=== PATIENT | male | born 1950 | race Hispanic/Latino ===

== ENCOUNTER 2016-04-18 16:10 | Emergency (ER) | payer SELFPAY ==
[2016-04-18] MEDS ORDERED: CARDENE DRIP 40 MG/200 ML 40 MG/200 ML BAG ONE (16:20)
[2016-04-18 16:22] LABS: Basophils % (Auto) 0.4 % (0.0-1.8); Eosinophils % (Auto) 2.4 % (0.0-4.3); Mean Corpuscular HGB Conc 31 % (32-34); Mean Corpuscular Hemoglobin 29 pg (28-32); Mean Corpuscular Volume 93 fl (84-94); Platelet Count 251 K/mm3 (140-440); Red Blood Count 5.07 M/mm3 (3.65-5.03); Red Cell Distribution Width 14.8 % (13.2-15.2); White Blood Count 9.4 K/mm3 (4.5-11.0)
[2016-04-18 16:23] LABS: Hemoglobin 14.5 gm/dl (11.8-15.2)
[2016-04-18] MEDS ORDERED: VASELINE LIP THERAPY TP PRN (16:26)
[2016-04-18] MEDS ORDERED: ARTIFICIAL TEARS OPHTH OINT OU PRN (16:26)
--- NOTE | 2016-04-18 16:30 | Cat Scan Report ---
FINAL REPORT PROCEDURE: CT HEAD/BRAIN WO CON TECHNIQUE: Computerized tomography of the head was performed without contrast material. HISTORY: neuro deficits \T\lt; 6hrs or sx present upon awakening COMPARISON: No prior studies are available for comparison. FINDINGS: There is acute parenchymal hemorrhage in the right basal ganglia, which measures up to 5.5 centimeters AP x 2.8 centimeters transverse x 4.0 centimeters craniocaudal. There is mild surrounding mass effect, including mild mass-effect on the right lateral ventricle. No significant midline shift. The basilar cisterns are preserved. No hydrocephalus. The intracranial arteries are symmetric in density. There is underlying white matter low attenuation, compatible with chronic microvascular ischemic changes. The calvarium is intact. Visualized paranasal sinuses and mastoids are aerated. IMPRESSION: Acute parenchymal hemorrhage centered in the right basal ganglia as described above. Findings discussed with Dr. Stacy by telephone at 3:25 p.m. central standard time on 04/18/2016.
[2016-04-18 16:32] LABS: Partial Thromboplastin Time 26.5 Sec. (24.2-36.6)
[2016-04-18 16:39] LABS: Anion Gap 31 mmol/L; BUN/Creatinine Ratio 17.69; Blood Urea Nitrogen 23 mg/dL (9-20); Carbon Dioxide 17 mmol/L (22-30); Chloride 99.4 mmol/L (98-107); Glucose 117 mg/dL (75-100); Potassium 3.8 mmol/L (3.6-5.0); Sodium 144 mmol/L (137-145)
--- NOTE | 2016-04-18 16:42 | Emergency Department Report ---
ED Neuro Deficit HPI - General Chief Complaint: Neuro Symptoms/Deficit Stated Complaint: POSS STROKE Time Seen by Provider: 04/18/16 16:11 Source: EMS Mode of arrival: Stretcher Limitations: Physical Limitation, Other - History of Present Illness Initial Comments: 65-year-old male presents emergency department via EMS after being found unresponsive in a yard. Per report, the patient is homeless. There is unknown circumstances around the patient being found unresponsive. EMS reports that the patient had seizure activity on their arrival. His initial blood pressure had a systolic greater than 230. Further history is unable to be obtained from the patient due to his altered mental status. -: unknown Presenting Symptoms: Present: Altered Mental Status Place: outdoors Severity: severe Context: found down - Related Data Allergies/Adverse Reactions: Allergies Allergy/AdvReac Type Severity Reaction Status Date / Time Unable to Assess Allergy Unverified 04/18/16 16:12 ED Review of Systems ROS: Stated complaint: POSS STROKE Other details as noted in HPI Comment: Unobtainable due to pts medical conditions ED Past Medical Hx - Past Medical History Additional medical history: unknown - Surgical History Additional Surgical History: unknown - Social History Smoking Status: Unknown if ever smoked ED Neuro Physical Exam - General Limitations: Physical Limitation, Other General appearance: obtunded Suspected Stroke: Yes - Head Head exam: Present: atraumatic, normocephalic - Eye Eye exam: Present: normal appearance, other (pupils equal at 4 mm. Right pupil is reactive, left pupil sluggish) - ENT ENT exam: Present: normal exam, normal orophraynx, mucous membranes moist - Neck Neck exam: Present: normal inspection, full ROM. Absent: tenderness - Respiratory Respiratory exam: Present: normal lung sounds bilaterally. Absent: respiratory distress - Cardiovascular Cardiovascular Exam: Present: regular rate, normal rhythm, normal heart sounds - GI/Abdominal GI/Abdominal exam: Present: soft, normal bowel sounds. Absent: distended, tenderness - Extremities Exam Extremities exam: Present: normal inspection, full ROM. Absent: tenderness - Back Exam Back exam: Present: normal inspection, full ROM. Absent: tenderness - Neurological Exam Neurological exam: Present: other (patient is not opening his eyes. No localization noted. Patient is spontaneously moving his right upper and lower extremities. No movement noted to the left lower extremity. Decerebrate posturing noted to the right upper extremity.) - NIHSS Assessment Interval: Baseline 1a. Level of Consciousness: responds reflex/autonomic 1b. LOC Questions: answers no questions correctly 1c. LOC Commands: performs no tasks correctly 2. Best Gaze: normal 3. Visual: no visual loss 4. Facial Palsy: normal symmetrical movement 5b. Motor Arm Right: no drift 5a. Motor Arm Left: no movement 6a. Motor Leg Left: no movement 6b. Motor Leg Right: no drift 7. Limb Ataxia: absent 8. Sensory: normal 9. Best Language: mute/global aphasia 10. Dysarthria: intubated or other barrier 11. Extinction/Inattention: no abnormality - Skin Skin exam: Present: warm, dry, intact ED Course Vital Signs 04/18/16 04/18/16 04/18/16 16:28 16:29 16:31 Temperature 99.1 F Pulse Rate 95 H 99 H 114 H Respiratory 20 24 14 Rate Blood Pressure 215/136 Blood Pressure [Left] O2 Sat by Pulse 90 98 98 Oximetry 04/18/16 04/18/16 04/18/16 16:35 16:38 16:41 Temperature Pulse Rate 85 83 Respiratory 13 16 Rate Blood Pressure Blood Pressure [Left] O2 Sat by Pulse 98 100 98 Oximetry 04/18/16 16:51 Temperature Pulse Rate 78 Respiratory 16 Rate Blood Pressure Blood Pressure 185/125 [Left] O2 Sat by Pulse 100 Oximetry - Intubation Time Out Performed: Yes Sedative: Etomidate Mg Given: 20 Paralytic: Rocuronium Mg Given: 100 Laryngoscope: Nik Size: 3 ET Tube Size: 8 Tube Secured Depth (cm): 24 Tube Secured Location: lips Tube Placement Confirmation: visualized tube passing t, equal breath sounds bilat, no breath sounds over epi, confirmation by capnometr Patient Tolerated Procedure: well Intubation Complications: none - Lab Data Result diagrams: 04/18/16 16:12 04/18/16 16:12 Lab Results 04/18/16 04/18/16 04/18/16 Range/Units 16:12 16:12 16:12 WBC 9.4 (4.5-11.0) K/mm3 RBC 5.07 H (3.65-5.03) M/mm3 Hgb 14.5 (11.8-15.2) gm/dl Hct 47.0 H (35.5-45.6) % MCV 93 (84-94) fl MCH 29 (28-32) pg MCHC 31 L (32-34) % RDW 14.8 (13.2-15.2) % Plt Count 251 (140-440) K/mm3 Lymph % (Auto) 30.3 (13.4-35.0) % [place] % (Auto) 6.0 (0.0-7.3) % Eos % (Auto) 2.4 (0.0-4.3) % Baso % (Auto) 0.4 (0.0-1.8) % Lymph # 2.9 (1.2-5.4) K/mm3 [place] # 0.6 (0.0-0.8) K/mm3 Eos # 0.2 (0.0-0.4) K/mm3 Baso # 0.0 (0.0-0.1) K/mm3 Seg Neutrophils % 60.9 (40.0-70.0) % Seg Neutrophils # 5.8 (1.8-7.7) K/mm3 PT 13.1 (12.2-14.9) Sec. INR 1.00 (0.87-1.13) APTT 26.5 (24.2-36.6) Sec. Thrombin Time (15.1-19.6) Sec. Sodium 144 (137-145) mmol/L Potassium 3.8 (3.6-5.0) mmol/L Chloride 99.4 (98-107) mmol/L Carbon Dioxide 17 L (22-30) mmol/L Anion Gap 31 mmol/L BUN 23 H (9-20) mg/dL Creatinine 1.3 (0.8-1.5) mg/dL Estimated GFR 55 ml/min BUN/Creatinine Ratio 17.69 % Glucose 117 H (75-100) mg/dL Calcium 9.0 (8.4-10.2) mg/dL Troponin T < 0.010 (0.00-0.029) ng/mL 04/18/16 Range/Units 16:12 WBC (4.5-11.0) K/mm3 RBC (3.65-5.03) M/mm3 Hgb (11.8-15.2) gm/dl Hct (35.5-45.6) % MCV (84-94) fl MCH (28-32) pg MCHC (32-34) % RDW (13.2-15.2) % Plt Count (140-440) K/mm3 Lymph % (Auto) (13.4-35.0) % [place] % (Auto) (0.0-7.3) % Eos % (Auto) (0.0-4.3) % Baso % (Auto) (0.0-1.8) % Lymph # (1.2-5.4) K/mm3 [place] # (0.0-0.8) K/mm3 Eos # (0.0-0.4) K/mm3 Baso # (0.0-0.1) K/mm3 Seg Neutrophils % (40.0-70.0) % Seg Neutrophils # (1.8-7.7) K/mm3 PT (12.2-14.9) Sec. INR (0.87-1.13) APTT (24.2-36.6) Sec. Thrombin Time 17.1 (15.1-19.6) Sec. Sodium (137-145) mmol/L Potassium (3.6-5.0) mmol/L Chloride (98-107) mmol/L Carbon Dioxide (22-30) mmol/L Anion Gap mmol/L BUN (9-20) mg/dL Creatinine (0.8-1.5) mg/dL Estimated GFR ml/min BUN/Creatinine Ratio % Glucose (75-100) mg/dL Calcium (8.4-10.2) mg/dL Troponin T (0.00-0.029) ng/mL - EKG Data -: EKG Interpreted by Ma EKG shows normal: sinus rhythm, axis, intervals, QRS complexes, ST-T waves Rate: normal When compared to previous EKG there are: previous EKG unavailable Interpretation: normal EKG - Radiology Data Radiology results: report reviewed, image reviewed CT results discussed with the radiologist. CT of the head shows a right basal ganglia hemorrhage measuring 5.5 x 2.8 x 4.0 cm. There is minimal mass effect and cerebral atrophy noted. - Medical Decision Making Lab and imaging results reviewed. Due to his decreased mental status patient wasn't put on arrival. See associated procedure no. Due to the patient's elevated blood pressure and neck are been drip was started. I have spoken with Dr. Navarrete, critical care and Dr. Ramirez, neurosurgery both [place]. Per their request, the patient's blood pressure will be titrated for systolic less than 160 mmHg. Patient is also being given 1 g of IV Keppra. Patient is also being given 1 g/kg of mannitol. Patient has been accepted in transfer and is currently awaiting transport. - Differential Diagnosis ischemic stroke, hemorrhagic stroke - Thrombolytic Inclusion/Exclusion Thrombolytic Exclusion Criteria: Onset of Symptoms Unknown Critical Care Time: Yes Critical care time in (mins) excluding proc time.: 45 Critical care attestation.: If time is entered above; I have spent that time in minutes in the direct care of this critically ill patient, excluding procedure time. Critical Care Time: The high probability of a clinically significant, sudden or life threatening deterioration of the neurologic and cardiovascular system(s) required my full and direct attention, intervention and personal management. The aggregate critical care time was 45 minutes. This time is in addition to time spent performing reported procedures but includes the following: [x] Data Review and interpretation [x] Patient assessment and monitoring of vital signs [x] Documentation [x] Medication orders and management ED Disposition Clinical Impression: Acute cerebral hemorrhage Disposition: DC/TX SHORT-TERM GEN HOSP INPT Is pt being admited?: No Condition: Fair Referrals: PRIMARY CARE, [Primary Care Provider] - 3-5 Days Time of Disposition: 17:13
[2016-04-18] MEDS ORDERED: AMIDATE IV ONE ×2 (16:47→19:19)
[2016-04-18] MEDS ORDERED: ZEMURON IV ONE ×2 (16:48→19:19)
[2016-04-18] MEDS ORDERED: OSMITROL 20% IV ONE (16:56)
[2016-04-18] MEDS ORDERED: KEPPRA 1,000 MG/NS 0.75% 100ML 1,000 MG/100 ML BAG IV ONE (16:56)
[2016-04-18] MEDS ORDERED: fentaNYL DRIP Premix 2,000 MCG/100 ML BAG IV SCH (17:00)
[2016-04-18] MEDS ORDERED: NACL 0.9% 500 ML IV SCH (17:00)
[2016-04-18] MEDS ORDERED: CARDENE DRIP 40 MG/200 ML 40 MG/200 ML BAG IV SCH (17:00)
[2016-04-18 18:06] VITALS: BP 167/87
[2016-04-18 18:37] LABS: ISTAT Base Excess 3; ISTAT HCO3 28.6; ISTAT PCO2 54.3 (35-45); ISTAT PH 7.329 (7.35-7.45); ISTAT PO2 450 (80-105); ISTAT SO2 100; ISTAT TCO2 30
[2016-04-18] MEDS ORDERED: QUELICIN ONE (19:19)
--- NOTE | 2016-04-19 09:55 | XRay Report ---
PORTABLE CHEST: INDICATION: ET tube placement. COMPARISON: None similar. FINDINGS: Portable, frontal chest radiograph demonstrates endotracheal tube tip about the level of the aortic knob, felt approximately 1.5 cm above the claudia. Slight patient rotation to the left. Mild exaggerated cardiomediastinal silhouette. Slight aortic knob calcifications. Clear lungs. EKG leads. Mild lower thoracic curvature, possibly positional versus scoliosis. CONCLUSION: No acute chest complication, as described. Thank you for the opportunity to participate in this patient's care.
== END 2016-04-18 18:05 | disposition short-term general hospital (02) ==
LOC: ED 16:10
DX: I61.9 Nontraumatic intracerebral hemorrhage, unspecified (principal)
CPT/HCPCS: 36415; 70450; 71010; 80048; 82803; 84484; 85025; 85610; 85670; 85730; 93005; 93010; 96365; 96366; 96368; 96375; 99291; J0330; J1953; J2150; J3010; 94002